=== PATIENT | female | born 2000 | race Caucasian/White ===

== ENCOUNTER 2022-08-18 11:27 | Emergency (ER) | payer OTHER, SELFPAY ==
[2022-08-18] VITALS (21 sets, daily range): BP systolic 98–116; BP diastolic 66–84; PULSE 80–101; RESP 12–23; TEMP 36.9; O2SAT 98–100
--- NOTE | ~2022-08-18 | XR_ITS ---
EXAMINATION: XR chest 2V Exam Date/Time: 08/18/2022 13:22 [employer] HISTORY: chest pain, NONSMOKER, NO HX OF LUNG/CARDIAC DISEASE Comparison: None available. RESULT: Lines, tubes, and devices: None. Lungs and pleura: Clear. Cardiomediastinal silhouette: Normal. Other: No acute osseous or upper abdominal finding. IMPRESSION: No acute cardiopulmonary process. Reviewed, dictated and finalized at location K. [employer] ENGINEER
--- NOTE | 2022-08-18 11:29 | ECG_ITS ---
Measurements Intervals [place] Rate: 91 P: 43 IA: 141 QRS: 82 QRSD: 84 T: -29 QT: 324 QTc: 400 Interpretive Statements SINUS RHYTHM NONSPECIFIC ST & T-WAVE ABNORMALITY NO PREVIOUS ECG AVAILABLE FOR COMPARISON Electronically Signed On 08-18-2022 15:03:35 [employer] by Kristine Valdovinos M.D.
--- NOTE | 2022-08-18 12:59 | PC.NURSE ---
Dr. Palacio at bedside to assess pt.
--- NOTE | 2022-08-18 13:23 | ED.GENADULT ---
HPI - General Adult General Chief complaint: Chest Pain Stated complaint: chest pain Time Seen by Provider: 08/18/22 12:54 History of Present Illness HPI narrative: this is a 22-year-old female presenting to ED with a chief complaint of chest pain. Patient says that she has been having 4-5 days of sharp pain in her left upper chest that radiates to her back. Has 5/10 in intensity and triggered by deep breaths. She says it is worse when she exerts herself and she is becoming short of breath more than usual. She has never experienced pain like this before and there are no alleviating factors. She denies lower extremity edema, recent trauma, immobilization or malignancy. Her mother did have a DVT that was provoked by a long plane ride. Patient takes a Mirena IUD for control. She is also on Accutane. patient has a recent URI in the last 2 weeks. Related Data Home Medications Medication Instructions Recorded Confirmed isotretinoin 40 mg capsule 40 mg PO ONCE 08/18/22 (Accutane) Allergies Allergy/AdvReac Type Severity Reaction Status Date / Time No Known Allergies Allergy Verified 08/18/22 11:57 [facility] Past Medical History Medical History Healthy female Social History Social History (Updated 08/18/22 @ 13:24 by Mandeep Palacio MD) Social History: Denies drugs alcohol and tobacco Exam Narrative: APPEARANCE: No apparent distress. Head: atraumatic. EYES: EOMI, NOSE: Atraumatic NECK: Trachea midline RESPIRATORY: No increased rate of breathing, clear to auscultation CARDIOVASCULAR: RRR, no peripheral edema ABDOMINAL: Non-distended MUSCULOSKELETAl: No obvious deformities NEURO: Alert. Moving 4/4 extremities SKIN:: Warm, dry. Normal color PSYCHIATRIC: Normal affect Course Vital Signs Vital signs: Vital Signs Temperature 98.5 F 08/18/22 11:45 Pulse Rate 80 08/18/22 11:45 Respiratory Rate 18 08/18/22 11:45 Blood Pressure 116/66 08/18/22 11:45 Pulse Oximetry 99 08/18/22 11:45 Oxygen Delivery Room Air 08/18/22 11:45 Temperature 98.5 F 08/18/22 11:45 Pulse Rate 83 08/18/22 14:45 Respiratory Rate 13 08/18/22 14:45 Blood Pressure 104/80 08/18/22 13:09 Pulse Oximetry 100 08/18/22 14:45 Oxygen Delivery Room Air 08/18/22 12:30 Medical Decision Making [facility] Narrative Medical decision making narrative: -Presentation: 22-year-old female presenting with pleuritic chest pain and shortness of breath. she would like to be evaluated for pulmonary embolism. -DDX includes but is not limited to: Pleurisy, pulmonary embolism, pneumonia, musculoskeletal pain -Co-morbidities complicating care: IUD hormonal control, Accutane history of DVT -Social determinants of health: noncontributory -External Chart Review: none -Hx from independent Sources: none -Discussion of Management/Consultants: none -Independent interpretation of studies: CBC was within normal limits. Metabolic panel is within normal limits. D-dimer was 0.34. Troponin and BNPs were undetectable. Chest x-ray was unremarkable. Independent EKG interpretation: Rhythm [sinus], Rate [91], [place] -[normal], DC -[normal], QRS [narrow], QTC [normal], T waves -[negative for concerning inversions], ST Segments - [Negative for concerning elevations] Final interpretations: [Normal Sinus Rhythm] -Procedures: none -Interventions: none -Shared decision making / Disposition: I discussed the patient's results with her. Given her low risk for PE and the negative D-dimer is unlikely that she has a pulmonary embolism. Chest x-ray was unremarkable. Troponins and BNPs were undetectable. Patient's chest pain is likely due to pleurisy from her recent URI. She will be discharged with instructions to take Motrin and Tylenol. She can return emergency department if she develops worsening symptoms or would like re-evaluation. -RX: Motrin/T
[2022-08-18 13:27] LABS: Basophils Percent Auto 0.4 % (0.2-1.2); Eosinophils Absolute Auto 0.2 K/mm3 (0-0.3); Eosinophils Percent Auto 2.1 % (0-4.4); Hematocrit 42.4 % (37.0-47.0); Immature Granulocyte Absolute 0.02 K/mm3 (0.00-0.031); Immature Granulocyte Percent A 0.3 % (0-0.5); Lymphocytes Absolute Auto 2.35 K/mm3 (0.9-3.2); Lymphocytes Percent Auto 32.6 % (18.3-44.2); Mean Corpuscular Hemoglobin 30.8 pg (26-34); Mean Corpuscular Volume 93.4 fl (80-100); Monocytes Absolute Auto 0.5 K/mm3 (0.1-0.6); Monocytes Percent Auto 6.7 % (2.6-8.5); Neutrophils Absolute Auto 4.2 K/mm3 (1.3-6.7); Neutrophils Percent Auto 57.9 % (45.5-73.1); Platelet Count Result 227 k/mm3 (150-375); Red Blood Count 4.54 M/mm3 (4.2-5.4); White Blood Count 7.2 K/mm3 (4.5-10.0)
[2022-08-18 13:39] LABS: INR 1.1; Prothrombin Time 13.4 Seconds (11.1-14.7)
[2022-08-18 13:40] LABS: Partial Thromboplastin Time 27.4 SECONDS (22.3-36.8)
[2022-08-18 13:45] LABS: Alanine Aminotransferase 22 U/L (6-35); Albumin Level 4.8 g/dL (3.5-5.1); Alkaline Phosphatase 87 U/L (38-126); Anion Gap 7 mmol/L (8-16); Aspartate Amino Transferase 35 U/L (14-36); Bilirubin,Total 0.5 mg/dL (0.2-1.3); Blood Urea Nitrogen 24 mg/dL (7-17); Calcium 9.2 mg/dL (8.4-10.2); Carbon Dioxide 26 mmol/L (22-30); Chloride 101 mmol/L (98-107); Estimated CRCL calculation 112 ml/min; Estimated Glomerular Filt Rate > 60; Glucose 95 mg/dL (65-110); Lipase 64 U/L (23-300); Potassium 4.3 mmol/L (3.4-5.0); Sodium 134 mmol/L (137-145)
[2022-08-18 13:52] LABS: NT Pro B Type Natriuretic Pept 42 pg/mL (19.9-100); Troponin I < 0.012 ng/mL (0.000-0.034)
[2022-08-18 15:11] LABS: D Dimer 0.34 ug/mL (<0.48)
== END 2022-08-18 16:10 | disposition home or self-care (01) ==
PROVIDERS: Emergency Medicine; Emergency Provider Emergency Medicine
DX: R09.1 Pleurisy (principal)
CPT/HCPCS: 36415; 71046; 80053; 83690; 83880; 84484; 85025; 85380; 85610; 85730; 93005; 99284